=== PATIENT | female | born 1950 | race American Indian/Alaskan Native ===

== ENCOUNTER 2017-07-08 12:43 | Emergency (ER) | payer MEDICARE ==
[2017-07-08] MEDS ORDERED: ADRENALIN ONE (12:45)
--- NOTE | 2017-07-08 13:16 | Emergency Department Report ---
ED CPR HPI - General Chief Complaint: Cardiac Arrest/CPR Stated Complaint: CARDIAC ARREST Time Seen by Provider: 07/08/17 13:01 Source: EMS Mode of arrival: Stretcher Limitations: Other - History of Present Illness Initial Comments: Patient arrived with CPR initiated by EMS. Intubated in the field. EMS found patient unresponsive and this was some report they received from family. No additional history is available. MD Complaint: found unresponsive -: minute(s) (30) Place: home Bystander CPR Performed: No Shock Advised: No Initial Findings in the Field: unresponsive, no pulse, other rhythm (asystole) ROSC in the Field: No Associated Injuries: No Treatments Prior to Arrival: intubation - Related Data Allergies Allergy/AdvReac Type Severity Reaction Status Date / Time Unable to Assess Allergy Unverified 07/08/17 12:53 ED Review of Systems ROS: Stated complaint: CARDIAC ARREST Other details as noted in HPI Comment: Unobtainable due to pts medical conditions ED Past Medical Hx - Past Medical History Hx Hypertension: Yes (unable to obtain further history) Hx Diabetes: Yes ED Physical Exam - General Limitations: Altered Mental Status, Other General appearance: obtunded, in distress, obese - Head Head exam: Present: atraumatic, normocephalic - Eye Eye exam: Present: other (pupils fixed) - ENT ENT exam: Present: other (endotracheal tube in place) - Respiratory Respiratory exam: Present: normal lung sounds bilaterally, decreased breath sounds - Cardiovascular Cardiovascular Exam: Present: other (no spontaneous cardiac activity) - GI/Abdominal GI/Abdominal exam: Present: distended - Extremities Exam Extremities exam: Present: normal inspection - Neurological Exam Neurological exam: Present: other (obtunded) - Skin Skin exam: Present: warm, dry - Procedure Description Procedures done: CPR was performed for approximately 15 minutes good chest compressions continued with occasional pause for pulse check ED Medical Decision Making - Medical Decision Making 67-year-old female here in cardiac arrest. Found by family unresponsive. On arrival she was intubated and in asystole on the monitor. CPR was continued for 2 rounds of epinephrine. No spontaneous return of circulation obtained. No spontaneous respirations. At this point the progressive been running for approximately 40 minutes without change in status. Given her grim prognosis resuscitation terminated. Time of 12:42 PM Family notified. Critical care attestation.: If time is entered above; I have spent that time in minutes in the direct care of this critically ill patient, excluding procedure time. ED Disposition Clinical Impression: Cardiac arrest Disposition: [id number] Is pt being admited?: No Condition: Critical
== END 2017-07-08 17:00 ==
LOC: ED 12:43
DX: I46.9 Cardiac arrest, cause unspecified (principal); E11.9 Type 2 diabetes mellitus without complications; I10 Essential (primary) hypertension
CPT/HCPCS: 82962; 92950; 99285; J0171